=== PATIENT | female | born 1935 | race Caucasian/White ===

== ENCOUNTER 2017-02-05 08:34 | Inpatient (IN) | payer BC, OTHER ==
[2017-01-16 11:59] VITALS: BMI 22.0
--- NOTE | 2017-01-16 12:40 | PAT Medication Instructions ---
Service Date Jan 16, 2017. Current Home Medication List Celecoxib (CeleBREX), 200 MG PO BID PRN for RN Lansoprazole (Prevacid), 15 MG PO PRN Levothyroxine Sodium (Levothyroxine Sodium), 1 TAB PO QAM Lisinopril (Zestril), 2.5 MG PO BID Lorazepam (Ativan), 0.5 MG PO HS PRN for RN Sennosides-Docusate Sodium (Stool Softener), 1 TAB PO HS Tolterodine Tartrate (Detrol LA), 1 CAP PO QPM [Biotin], 1 TAB PO QPM [Vitamin D3], 400-800 UNITS PO QAM Medication Instructions For Your Scheduled Surgery - Hold the following medications 7 days prior to surgery: Biotin, 1 TAB PO QPM - Hold the following medications evening prior to and morning surgery: Lisinopril (Zestril), 2.5 MG PO BID (last dose will be in the morning on 02/04) - Hold the following medications the morning of surgery: Vitamin D3 400-800 UNITS PO QAM Celecoxib (CeleBREX), 200 MG PO BID PRN for RN (not told to stop by surgeon office) - Take the following medications the morning of surgery with a sip of water: Levothyroxine Sodium (Levothyroxine Sodium), 1 TAB PO QAM Lansoprazole (Prevacid), 15 MG PO PRN - Take the following medications as scheduled the night before surgery: Tolterodine Tartrate (Detrol LA), 1 CAP PO QPM Lorazepam (Ativan), 0.5 MG PO HS PRN for RN Sennosides-Docusate Sodium (Stool Softener), 1 TAB PO HS If you have any questions please call us at [phone] or [phone] ( Stephanie) or [phone]
[2017-01-16 13:28] LABS: BASO % 0.6 %; BASO ABS # 0.04 K/uL (0-0.2); COMPLETE YES; EOS % 2.7 %; HEMATOCRIT 39.9 % (37-47); IG% 0.2 %; LYMPH % 32.8 %; LYMPH ABS # 2.18 K/uL (1.2-3.4); MEAN CELL VOLUME 87.1 fL (80-100); MEAN CORPUSCULAR HEMOGLOBIN 29.9 pg (25-34); MEAN CORPUSCULAR HGB CONC 34.3 g/dl (32-36); MEAN PLATELET VOLUME 9.7 fL (7.4-10.4); MONO % 10.2 %; NEUT % 53.5 %; PLATELET COUNT 209 K/uL (130-400); RED BLOOD COUNT 4.58 M/uL (4.2-5.4); WHITE BLOOD COUNT 6.65 K/uL (4.8-10.8)
--- NOTE | 2017-01-16 13:35 | DIAGNOSTIC IMAGING REPORT ---
CHEST 2 VIEWS ROUTINE CLINICAL HISTORY: Preoperative evaluation. COMPARISON STUDY: No previous studies for comparison. FINDINGS: Surgical staple line within the right lung is noted. There is no pneumothorax or pleural effusion. There is no consolidation to suggest pneumonia. Prominent right infrahilar markings likely reflect summation artifact with normal structures. There is no evidence of pulmonary edema. Cardiac size is normal. IMPRESSION: No acute cardiopulmonary findings. Electronically signed by: Augusto Alcantar M.D. 01/16/2017 1:33 PM Dictated Date/Time: 01/16/2017 1:32 PM
[2017-01-16 13:36] LABS: URINE APPEARANCE CLEAR (CLEAR); URINE BILIRUBIN NEG (NEG); URINE COLOR YELLOW; URINE EPITHELIAL CELL AUTO 0-5 /lpf (0-5); URINE NITRITE NEG (NEG); URINE SPECIFIC GRAVITY 1.008 (1.000-1.030); UROBILINOGEN NEG (NEG); ZZUR CULT IF INDIC CLEAN CATCH NO
[2017-01-16 13:39] LABS: MANUAL MICROSCOPIC REQUIRED? NO; REVIEW REQ? NO
[2017-01-16 13:39] LABS: PARTIAL THROMBOPLASTIN RATIO 1.1
[2017-01-16 13:40] LABS: BUN/CREATININE RATIO 21.4 (10-20); CALCIUM 9.3 mg/dl (8.5-10.1); CREATININE 0.59 mg/dl (0.60-1.20); POTASSIUM 4.1 mmol/L (3.5-5.1)
--- NOTE | 2017-02-02 09:12 | HISTORY & PHYSICAL EXAMINATION ---
DATE OF ADMISSION: 02/02/2017 CHIEF COMPLAINT: Left knee pain. HISTORY OF PRESENT ILLNESS: Livia is a 81-year-old female with a 6-month history of pain in her left knee. She rates her pain a 5/10. She has pain with her daily activities. She has limited standing and walking tolerance. Pain is worse with weightbearing. The patient has had Celebrex injections, exercise program, and bracing without relief. She has failed conservative treatment and is scheduled for left knee replacement. PAST MEDICAL HISTORY: Hypertension, thyroid disease, osteoarthritis, GERD, hiatal hernia, and inflammatory bowel disease. She denies heart disease, diabetes or DVT. PAST SURGICAL HISTORY: WEN-BSO, appendectomy, cholecystectomy, right lobe lung resection, and parathyroidectomy. SOCIAL HISTORY: The patient denies alcohol or tobacco use. She lives in a 2-story home. She is and is a retired RN. FAMILY HISTORY: Negative for DVT. MEDICATIONS: Fosamax 70 mg once a week, vitamin D3 400 units daily, levothyroxine 25 mcg daily, Prinivil 2.5 mg twice daily, Ativan 0.5 mg p.r.n., and Detrol-LA 2 mg daily. ALLERGIES: SEPTRA CAUSES A RASH. REVIEW OF SYSTEMS: See HPI. Ten other systems reviewed, all negative. PHYSICAL EXAMINATION: VITAL SIGNS: Height 5 feet 5 inches, weight 140 pounds, BMI is 23. GENERAL: This is a well-developed, well-nourished female who is alert and oriented x3. Mood and affect are appropriate. HEENT: Normocephalic, atraumatic. Mucous membranes are moist and intact. NECK: Supple without lymphadenopathy. HEART: Regular rate and rhythm without murmurs, rubs or gallops. LUNGS: Clear to auscultation without wheezes or rhonchi. ABDOMEN: Soft and nontender. Bowel sounds are equal and active. EXTREMITIES: No ecchymosis, redness or warmth. Thigh and calf are soft and nontender. She has neutral alignment. Range of motion is from 0-115 degrees with +1 laxity. She is neurovascularly intact with +5/5 strength. X-RAY EXAMINATION: AP and lateral views show joint space narrowing and osteophyte formation. IMPRESSION: Degenerative joint disease, left knee. PLAN: The patient will be admitted for a left total knee arthroplasty. We will plan on aspirin for DVT prophylaxis. She will have [facility] for home physical therapy. Her PCP is Dr. Portia Grossman.
[2017-02-05] VITALS (8 sets, daily range): BP systolic 105–217; BP diastolic 64–99; PULSE 65–81; TEMP 36.3–36.6; O2SAT 95–98; Ht 167.6 cm; Wt 63.6 kg
[~2017-02-05] VITALS: Ht 167.6 cm; Wt 63.6 kg
[2017-02-05] MEDS: TRANEXAMIC ACID INJ 1,000 MG in SODIUM CHLORIDE 0.9% 100ML 100 ML IV SCH ×2 (06:30→10:27)
[~2017-02-05 08:34] MED LIST: ACETAMINOPHEN 500 MG TAB PO SCH; BIOTPOW17 PO; BUPIVACAINE 0.5 % 5 MG/1 ML PF 10ML VIAL ONE; CEFAZOLIN 2000 MG/60 ML D5W 60 ML IV SCH; CLB/200 PO; DEXAMETHASONE 4 MG TAB PO SCH; DTRSR/2 PO; FAMOTIDINE 20 MG TAB PO SCH; GABAPENTIN 300 MG CAP PO SCH; LACTATED RINGER'S 1000ML IV SCH; LANS15CA6 PO; LEVO25TA5 PO; LISI-729 PO; LORA-741 PO; METOCLOPRAMIDE HCL 10 MG TAB PO SCH; OXYCODONE HCL 10 MG TABCR (OXYCONTIN) PO SCH; POLYMYXIN B SULFATE 100,000 UNITS in NSS 100ML IR SCH; ROPIVACAINE 5MG/ML 30 ML 150 MG, BUPIVACAINE/EPINEPHR 0.5% MPF 30 ML, KETOROLAC TROMETH... INFIL SCH; SENNTAB23 PO; VANCOMYCIN INJ 400 MG in NSS 100ML IR SCH; VITAMIN D3 PO
--- NOTE | 2017-02-05 09:40 | History & Physical Bridge Note ---
H&P Re-Evaluation Bridge Note: I have examined the patient, reviewed the History & Physical and in the interval since the performance of the History & Physical I have noted the following changes of clinical significance: No changes noted
[2017-02-05] MEDS ORDERED: MIDAZOLAM HCL 1 MG/ML 2ML VIAL ONE ×2 (09:43→09:44)
[2017-02-05] MEDS ORDERED: FENTANYL CITRATE INJ 50 MCG/1 ML 2 ML VIAL ONE (09:43)
[2017-02-05] MEDS ORDERED: FENTANYL CITRATE INJ 50 MCG/1 ML 2 ML VIAL IV PRN (09:45)
[2017-02-05] MEDS ORDERED: EpHEDrine SULFATE INJ 50 MG/ML AMP IV PRN (09:45)
[2017-02-05] MEDS ORDERED: ONDANSETRON INJ 2 MG/ML 2 ML VIAL IV PRN (09:45)
[2017-02-05] MEDS ORDERED: ATROPINE SULFATE 0.1 MG/ML 5ML SYR IV PRN (09:45)
[2017-02-05] MEDS ORDERED: BACITRACIN 50000 UNIT VIAL ONE (10:30)
[2017-02-05] MEDS ORDERED: BUPIVACAINE/EPINEPHRINE 0.25% 1:200,000 30 ML VIAL ONE (10:30)
[2017-02-05] MEDS ORDERED: POVIDONE-IODINE OP SOLN 30 ML BTL ONE (10:30)
[2017-02-05] MEDS ORDERED: PROPOFOL IV EMULSION 10 MG/ML 20 ML VIAL IV ONE ×2 (11:13→11:27)
[2017-02-05] MEDS ORDERED: LABETALOL HCL IV 5 MG/ML 20ML IV ONE (11:13)
[2017-02-05] MEDS ORDERED: METOPROLOL TARTRATE 1 MG/ML VIAL ONE (11:16)
--- NOTE | 2017-02-05 11:51 | [facility] Post Operative Brief Note ---
Immediate Operative Summary Operative Date February 05, 2017. Pre-Operative Diagnosis Degenerative joint disease left knee Post-Operative Diagnosis Degenerative joint disease left knee Procedure(s) Performed Left Total Knee Arthroplasty, Cemented Surgeon Dr. Kraig Andrade Roller Inspector And Mender Surgeon(s) Dennis Tom PA-C Estimated Blood Loss 75ml Findings djd Specimens A: Left knee bone and tissue Complication(s) None Disposition Recovery Room / PACU
[2017-02-05] MEDS ORDERED: TRAMADOL HCL 50 MG TAB PO PRN (12:00)
[2017-02-05] MEDS ORDERED: OXYCODONE HCL IR 5 MG TAB (IMMEDIATE RELEASE) PO PRN (12:00)
[2017-02-05] MEDS ORDERED: BISACODYL 10 MG SUPP PR PRN (12:00)
[2017-02-05] MEDS ORDERED: MoRPHine SULFATE 2 MG/ML CARP IV PRN (12:00)
[2017-02-05] MEDS ORDERED: MAGNESIUM HYDROXIDE SUSP 30 ML UDC PO PRN (12:00)
[2017-02-05] MEDS ORDERED: METOCLOPRAMIDE HCL INJ 5 MG/ML 2 ML VIAL IV PRN (12:00)
[2017-02-05] MEDS ORDERED: ZOLPIDEM TARTRATE 5 MG TAB PO PRN (12:00)
[2017-02-05] MEDS ORDERED: LORAZEPAM 0.5 MG TAB PO PRN (12:00)
[2017-02-05] MEDS ORDERED: ALUMINUM/MAGNESIUM/SIMETH (MAALOX MAX) 30 ML UDC PO PRN (12:00)
[2017-02-05] MEDS ORDERED: DiphenhydrAMINE HCL 50 MG/ML VIAL IV PRN (12:00)
[2017-02-05] MEDS ORDERED: SOD PHOSPHATE/SOD BIPHOSPHATE ENEMA 132 ML BTL PR PRN (12:00)
--- NOTE | 2017-02-05 12:55 | DIAGNOSTIC IMAGING REPORT ---
LEFT KNEE 1 OR 2 VIEWS ROUTINE CLINICAL HISTORY: AP/LATERAL IN PACU LEFT KNEE joint replacement COMPARISON: None. DISCUSSION: Evidence for a total left knee arthroplasty. Good contact between prosthetic and underlying bone. Surgical drains are in position. Expected postoperative soft tissue change IMPRESSION: Anatomic alignment status post total left knee replacement Electronically signed by: Ab Nunes M.D. 02/05/2017 12:53 PM Dictated Date/Time: 02/05/2017 12:53 PM
--- NOTE | 2017-02-05 14:47 | Anesthesiology Progress Note ---
Anesthesia Post Op Note Date & Time February 05, 2017 at 14:47 Vital Signs Pain Intensity: 0.0 Vital Signs Past 12 Hours Date Time Temp Pulse Resp B/P Pulse Ox O2 Delivery O2 Flow Rate FiO2 02/05/17 14:25 36.6 69 16 138/77 97 Nasal Cannula 2.0 02/05/17 14:25 Nasal Cannula 2.0 02/05/17 14:00 36.9 72 16 136/71 95 Nasal Cannula 2 02/05/17 13:50 36.1 69 16 141/68 96 Nasal Cannula 2 02/05/17 13:40 36.1 69 16 146/73 97 Nasal Cannula 2 02/05/17 13:30 36.1 67 16 145/75 96 Nasal Cannula 2 02/05/17 13:20 36.1 70 20 135/79 96 Nasal Cannula 2 02/05/17 13:10 71 20 146/69 96 Nasal Cannula 2 02/05/17 13:00 67 20 136/67 96 Nasal Cannula 2 02/05/17 12:50 66 20 143/73 100 Mask 10 02/05/17 12:40 72 20 153/80 100 Mask 10 02/05/17 12:30 36 70 20 133/70 99 Mask 10 02/05/17 09:28 36.6 81 20 217/99 98 Room Air Notes Mental Status: alert / awake / arousable, participated in evaluation Pt Amnestic to Procedure: Yes Nausea / Vomiting: adequately controlled Pain: adequately controlled Airway Patency, RR, SpO2: stable & adequate BP & HR: stable & adequate Hydration State: stable & adequate Neuraxial Anesthesia: was administered, sensory block is resolving Anesthetic Complications: no major complications apparent
--- NOTE | 2017-02-05 16:18 | OPERATIVE REPORT ---
DATE OF OPERATION: 02/05/2017 PREOPERATIVE DIAGNOSIS: Degenerative arthritis, left knee. POSTOPERATIVE DIAGNOSIS: Same. PROCEDURE: Left total knee with patient matched implant. SURGEON: Dr. Andrade. FREIGHT CAR INSPECTOR: YAAKOV Sanabria. ANESTHESIA: Spinal. BLOOD LOSS: 75 mL. REPLACEMENT FLUIDS: 1800 mL of crystalloid. DRAINS: Hemovac x2. CULTURES: None. COMPLICATIONS: None. DESCRIPTION: Following satisfactory spinal, the patient was supine. A tourniquet was placed but not inflated. The lower extremity was prepared with ChloraPrep and draped sterilely. Following a surgical time-out, a midline incision was made with a trivector approach. The knee showed grade 4 changes most marked in the medial compartment. The cruciate ligaments were excised and patient matched femoral block was applied. Femoral distal rotation and resection were set and completed. The 4-in-1 block was used to finish preparation of the femur. The patient matched tibial block was applied. Tibial resection was completed. Patella was freehand cut. Soft tissue balancing was completed and a trial reduction showed good tensioning stability on the collateral ligaments, stable range of motion, and the patella tracked well. The trial components were removed, the capsule was prepared with the orthopedic cocktail and after irrigation, the components were cemented using Simplex G cement. A Betadine soak was performed. When the cement had hardened, the Betadine was irrigated. Two drains were placed, the arthrotomy was closed with a running suture of 1 Vicryl. The subcutaneous tissues with 2-0 Vicryl and the skin with a running subcuticular stitch of 3-0 V-Loc. Dermabond and a dry dressing were applied. The patient was returned to her bed in stable condition. I attest to the content of the Intraoperative Record and any orders documented therein. Any exceptio ns are noted below.
[2017-02-05] MEDS: D5W AND 1/2NSS + 20MEQ KCL 1,000 ML IV SCH (16:25)
[2017-02-05] MEDS: ACETAMINOPHEN 500 MG TAB PO SCH ×2 (16:25→21:44)
[2017-02-05] MEDS: CEFAZOLIN IV 1,000 MG in DEXTROSE 5% 50ML 50 ML IV SCH (17:57)
[2017-02-05] MEDS: LISINOPRIL 2.5 MG TAB PO SCH (20:35)
[2017-02-05] MEDS: ASPIRIN 81 MG ECTAB PO SCH (20:35)
[2017-02-05] MEDS ORDERED: TOLTERODINE TARTRATE LA 2 MG CAPCR PO SCH (21:00)
[2017-02-05] MEDS ORDERED: SENNA 8.6 MG TAB PO SCH (21:00)
[2017-02-05] MEDS ORDERED: OXYCODONE HCL 10 MG TABCR (OXYCONTIN) PO SCH (21:00)
[2017-02-05] MEDS: ONDANSETRON INJ 2 MG/ML 2 ML VIAL IV PRN (23:43)
[2017-02-06] MEDS: CEFAZOLIN IV 1,000 MG in DEXTROSE 5% 50ML 50 ML IV SCH (02:10)
[2017-02-06] MEDS: D5W AND 1/2NSS + 20MEQ KCL 1,000 ML IV SCH ×2 (02:10→10:26)
[2017-02-06 02:49] VITALS: BP 119/69; PULSE 66; TEMP 36.5; O2SAT 92
[2017-02-06] MEDS: KETOROLAC TROMETHAMINE 15 MG/ML VIAL IV. PRN ×2 (02:54→13:04)
[2017-02-06] MEDS ORDERED: LEVOTHYROXINE 25 MCG TAB PO SCH (06:00)
[2017-02-06 06:12] LABS: HEMATOCRIT 31.2 % (37-47); MEAN CELL VOLUME 89.4 fL (80-100); MEAN CORPUSCULAR HEMOGLOBIN 30.1 pg (25-34); MEAN CORPUSCULAR HGB CONC 33.7 g/dl (32-36); MEAN PLATELET VOLUME 9.9 fL (7.4-10.4); PLATELET COUNT 173 K/uL (130-400); RED BLOOD COUNT 3.49 M/uL (4.2-5.4); WHITE BLOOD COUNT 13.76 K/uL (4.8-10.8)
[2017-02-06] MEDS: ACETAMINOPHEN 500 MG TAB PO SCH ×2 (06:14→13:33)
[2017-02-06 06:48] LABS: BUN/CREATININE RATIO 23.4 (10-20); CALCIUM 7.7 mg/dl (8.5-10.1); CREATININE 0.78 mg/dl (0.60-1.20); POTASSIUM 4.4 mmol/L (3.5-5.1)
[2017-02-06 07:14] VITALS: BP 108/65; PULSE 62; TEMP 36.7; O2SAT 96
[2017-02-06] MEDS: ONDANSETRON INJ 2 MG/ML 2 ML VIAL IV PRN (07:20)
[2017-02-06] MEDS: LISINOPRIL 2.5 MG TAB PO SCH (08:43)
[2017-02-06] MEDS: ASPIRIN 81 MG ECTAB PO SCH (08:43)
[2017-02-06 08:45] VITALS: BP 105/64; PULSE 70
[2017-02-06] MEDS ORDERED: MULTIVITAMIN TAB PO SCH (09:00)
[2017-02-06] MEDS ORDERED: PANTOprazole SOD 40 MG TAB PO SCH (09:00)
--- NOTE | 2017-02-06 09:40 | Anesthesiology Progress Note ---
Anesthesia Post Op Note Date & Time February 06, 2017 at 09:37 Vital Signs Pain Intensity: 2.0 Vital Signs Past 12 Hours Date Time Temp Pulse Resp B/P Pulse Ox O2 Delivery O2 Flow Rate FiO2 02/06/17 08:45 70 105/64 02/06/17 07:20 Room Air 02/06/17 07:14 36.7 62 16 108/65 96 Room Air 02/06/17 02:49 36.5 66 17 119/69 92 Room Air 02/05/17 23:35 Room Air 02/05/17 23:30 36.6 66 18 135/75 95 Room Air Notes Mental Status: alert / awake / arousable, participated in evaluation Pt Amnestic to Procedure: Yes Nausea / Vomiting: adequately controlled Pain: adequately controlled Airway Patency, RR, SpO2: stable & adequate BP & HR: stable & adequate Hydration State: stable & adequate Neuraxial Anesthesia: sensory block resolved Anesthetic Complications: no major complications apparent Pt complained of nausea and vomiting yesterday, improving this morning, with mild nausea aftere pain meds. Otherwise, no complaints.
--- NOTE | 2017-02-06 11:22 | Orthopedic Progress Note ---
Orthopedic Progress Note Date of Service February 06, 2017. Subjective Post OP Day: 1 Reports: feeling well, Denies: SOB, calf pain, chest pain, light headedness, nausea / vomiting Additional Notes: Had some nausea yesterday but seems to have resolved. Feeling well today. About to participate in PT. Drain currently looks to be holding another 200ml's Objective calves soft nontender, N/V intact, dressing C/D/I, A&O x3, toes mobile, hemovac drainage (150ml latest shift; ) Date Time Temp Pulse Resp B/P Pulse Ox O2 Delivery O2 Flow Rate FiO2 02/06/17 08:45 70 105/64 02/06/17 07:20 Room Air 02/06/17 07:14 36.7 62 16 108/65 96 Room Air 02/06/17 02:49 36.5 66 17 119/69 92 Room Air 02/05/17 23:35 Room Air 02/05/17 23:30 36.6 66 18 135/75 95 Room Air 02/05/17 19:25 36.6 69 16 152/76 96 Room Air 02/05/17 17:29 36.5 65 16 105/64 97 Nasal Cannula 3.0 02/05/17 16:25 36.3 75 17 168/93 97 Nasal Cannula 2.0 02/05/17 16:03 Nasal Cannula 2.0 02/05/17 15:39 36.4 67 16 110/69 98 Nasal Cannula 3.0 02/05/17 14:57 36.4 72 16 121/69 97 Nasal Cannula 3.0 02/05/17 14:25 36.6 69 16 138/77 97 Nasal Cannula 2.0 02/05/17 14:25 Nasal Cannula 2.0 02/05/17 14:00 36.9 72 16 136/71 95 Nasal Cannula 2 02/05/17 13:50 36.1 69 16 141/68 96 Nasal Cannula 2 02/05/17 13:40 36.1 69 16 146/73 97 Nasal Cannula 2 02/05/17 13:30 36.1 67 16 145/75 96 Nasal Cannula 2 02/05/17 13:20 36.1 70 20 135/79 96 Nasal Cannula 2 02/05/17 13:10 71 20 146/69 96 Nasal Cannula 2 02/05/17 13:00 67 20 136/67 96 Nasal Cannula 2 02/05/17 12:50 66 20 143/73 100 Mask 10 02/05/17 12:40 72 20 153/80 100 Mask 10 02/05/17 12:30 36 70 20 133/70 99 Mask 10 Laboratory Results 24 Hours: Test 02/06/17 05:35 Hematocrit 31.2 % Hemoglobin 10.5 g/dL Assessment & Plan Assessment: POD 1 s/p Left TKA Plan: PT/OT Planning on [facility] on discharge Will discuss drainage amount with Dr Andrade. Possible dc to home today. Trying to stay away from narcotics due to a sensitive stomach. Has been using Tylenol so far with good results. Inhouse Planning Pain Management: Celebrex, Toradol, [place], Morphine, PO Tylenol, Oxy IR DVT Prophylaxis: TEDs, SCDs, ASA Discharge Planning Discharge Planning: home with home health Pain Management: Celebrex, Ultram, PO Tylenol DVT Prophylaxis: TEDs, ASA Therapy: Physical Therapy
[2017-02-06] MEDS ORDERED: ULT50X PO (11:26)
[2017-02-06] MEDS ORDERED: ASPEC81 PO (11:26)
[2017-02-06] MEDS ORDERED: ACET-1138 PO (11:26)
[2017-02-06] MEDS ORDERED: CLB/200 PO (11:26)
--- NOTE | 2017-02-06 11:30 | Discharge Instructions ---
Discharge Instructions Date of Service February 06, 2017. Admission Reason for Admission: Left Knee Degenerative Arthritis Discharge Discharge Diagnosis / Problem: Left Knee Djd Discharge Goals Goal(s): Decrease discomfort, Improve function Activity Recommendations Activity Limitations: per Instructions/Follow-up section Weightbearing Status: Left weightbearing (as tolerated) . Instructions / Follow-Up Instructions / Follow-Up ACTIVITY RECOMMENDATIONS: SELF CARE INSTRUCTIONS AFTER TOTAL KNEE REPLACEMENT A. You may need to continue a physical therapy program after discharge from the hospital. There are several options available to you. Your doctor will assist you in selecting the best one for you. 1. An out-patient facility 2 to 3 times a week for therapy or home therapy. 2. Continue working on all exercises taught to you in the hospital. Your goals should be to increase bending of your knee to 90 degrees and beyond and to fully straighten your knee. B. You may progress at your own pace from walking with a walker or crutches to a cane; then to no assistive devices. C. Make walking a part of your daily routine. Be up as much as comfortable with rest periods throughout the day. Rest with leg elevation is very important. Use the ice wrap frequently for the first 3-4 weeks. D. There are no restrictions on activities. You may ride in a car, shop, participate in occupational therapist and all social activities. E. Wear the long elastic stockings (JEANINE hose) 20 hours a day for 2 weeks after surgery. They can be removed several times a day for laundering and for a bath. F. You may shower, no tub baths until cleared by your doctor. SPECIAL CARE INSTRUCTIONS: VERY IMPORTANT TO READ AND REVIEW A. There are a few signs you need to watch for after you are home. Call [facility] if you notice any of the followin. Increased severe knee pain. Some pain is expected especially when you exercise. 2. Increased swelling in your leg or knee; pain or swelling of the calf muscle in either lower leg. 3. Any fluid drainage from the incision. 4. Shortness of breath or chest pain. B. Please call [facility] [place] at if you have any concerns or questions about your operation or recovery. The doctor or his nurse will return your call promptly. C. You must take antibiotics before dental work, bladder, bowel or other surgery. Your doctor will provide you with a permanent care to carry describing this precaution. IMPORTANT: * REMEMBER TO TAKE ASPIRIN, 81 MG, TWICE DAILY FOR 4 WEEKS UNLESS OTHERWISE DIRECTED. THIS IS YOUR BLOOD THINNER. * HIGH RISK PATIENTS MAY BE PRESCRIBED A STRONGER BLOOD THINNER. THIS WILL BE PROVIDED AT DISCHARGE. * CALL IF INCREASED PAIN, REDNESS, DRAINAGE OR FEVER GREATER THAT 101. * WEAR JEANINE HOSE 20 HOURS PER DAY FOR 2 WEEKS. * DERMABOND Prineo- This is a mesh tape dressing that is covered with glue. It should remain in place until the incision is properly healed, usually 10-14 days. This dressing is designed to naturally slough off. You may trim the excess mesh tape as it peels off. Incision may be briefly wet in a shower. Dry immediately by blotting with a clean, dry towel. Do not bath or swim until instructed by your doctor. Do not scratch, rub, or pick at the dressing. Do not apply any topical ointments or lotions until dressing is completely removed and/or instructed by your doctor. There may be a small piece of suture material at one end of your incision. Do not pull or trim this. If it is bothersome or catching on clothing, you may cover it with a band-aid. . FOLLOW UP VISIT: If appointment is not already scheduled: Please call [facility] to make a follow-up appointment for 2 weeks after your surgery at . Current Hospital Diet Patient's current hospital diet: Regular Diet Discharge Diet Recommended Diet: Regular Diet Procedures Procedures Performed: Left Total Knee Arthroplasty, Cemented Pending Studies Studies pending at discharge: no Medical Emergencies . Who to Call and When: Medical Emergencies: If at any time you feel your situation is an emergency, please call 911 immediately. . Non-Emergent Contact Non-Emergency issues call your: Surgeon Call Non-Emergent contact if: temperature is above 101.5, your pain is not controlled, your pain is worsening, wound has increased drainage, wound has increased redness . "Provider Documentation" section prepared by Dennis Tom. . VTE Core Measure Inpt VTE Proph given/why not?: Other Anticoagulation, T.E.D. Stockings, SCD's [place] Drug Monitoring Program Search Results: patient reviewed within database, no issues identified
[2017-02-06 11:59] VITALS: BP 140/68; PULSE 68; TEMP 36.7; O2SAT 97
[2017-02-06 13:50] VITALS: BP 140/68; PULSE 68; TEMP 36.7; O2SAT 97
[2017-02-08] MEDS ORDERED: CeleBREX 200 MG CAP PO SCH (08:00)
--- NOTE | 2017-02-12 08:25 | Discharge Summary ---
Orthopedic Discharge Summary Admission Date/Reason February 05, 2017 at 09:00 Left Knee Degenerative Arthritis. Discharge Date/Disposition February 06, 2017 Home with services Diagnosis Principal Diagnosis: Left Knee Djd Secondary Diagnoses/Problems: Hypertension, thyroid disease, osteoarthritis, GERD, hiatal hernia, and inflammatory bowel disease Procedure(s) Performed Left TKA Medication Reconciliation New Medications: Acetaminophen (Tylenol Extra Strength) 500 Mg Tab 1000 MG PO Q8H for 30 Days, #180 TAB Aspirin (Aspirin EC Low Dose) 81 Mg Ectab 81 MG PO BID for 30 Days Tramadol HCl (Tramadol HCl) 50 Mg Tab 50-100 MG PO Q4H PRN for Pain, #60 TAB Changed Medications: Celecoxib (CeleBREX) 200 Mg Cap 200 MG PO BID, #60 CAP (Changed from: Removed Reason) Resume your regular dose of Celebrex once you have finished this prescription in 1 month. Continued Medications: Lansoprazole (Prevacid) 15 Mg Capcr 15 MG PO PRN, CAP Levothyroxine Sodium (Levothyroxine Sodium) 25 Mcg Tab 1 TAB PO QAM for 90 Days, #90 TAB 3 Refills Lisinopril (Zestril) 5 Mg Tab 2.5 MG PO BID, TAB Lorazepam (Ativan) 0.5 Mg Tab 0.5 MG PO HS PRN for RN, TAB Sennosides-Docusate Sodium (Stool Softener) 1 Tab Tab 1 TAB PO HS Tolterodine Tartrate (Detrol LA) 2 Mg Capcr 1 CAP PO QPM for 90 Days, CAP 3 Refills [Biotin] () 1 TAB PO QPM [Vitamin D3] () 400-800 UNITS PO QAM Admission Physical Exam As per Admitting History & Physical. Hospital Course The Patient had an uneventful hospital course. Labs remained stable- lowest hemoglobin recorded: 10.5 . Pain controlled on oral medications. Participated in PT with ambulation distance of 225 feet. ROM of operative knee reached 112 degrees. Drainage output totaled 550 cc prior to discontinuation. Patient did not have a reported bowel movement. Incision remained clean/dry/intact. DVT prophylaxis with Aspirin EC 81mg BID x 30 days/Jevon stockings. Patient discharged home with Home Health Services in stable condition. Please refer to daily progress notes for further details. Discharge Instructions Please refer to the electronic Patient Visit Report (Discharge Instructions) for additional information.
== END 2017-02-06 14:45 | disposition home health service (06) | DRG 470 ==
LOC: ENRESERVTM → ENRESERVDT → C.ACU 08:34 → C.3E 09:00
PROVIDERS: ADMIT Orthopaedic Surgery; ATTEND Orthopaedic Surgery
PROC: 0SRD0J9 Replacement of Left Knee Joint with Synthetic Substitute, Cemented, Open Approach (ICD-10-PCS; principal; 2017-02-05 10:30)
DX: M17.12 Unilateral primary osteoarthritis, left knee (principal); R11.2 Nausea with vomiting, unspecified; I10 Essential (primary) hypertension; K21.9 Gastro-esophageal reflux disease without esophagitis; K58.9 Irritable bowel syndrome, unspecified; E89.2 Postprocedural hypoparathyroidism; E04.1 Nontoxic single thyroid nodule; M81.0 Age-related osteoporosis without current pathological fracture; Z90.2 Acquired absence of lung [part of]; Z79.1 Long term (current) use of non-steroidal anti-inflammatories (NSAID); Z79.83 Long term (current) use of bisphosphonates; Z79.899 Other long term (current) drug therapy